=== PATIENT | male | born 1960 | race African-American/Black ===

== ENCOUNTER 2025-03-14 15:07 | Inpatient (IN) | payer OTHER ==
[2025-03-14] MEDS ORDERED: NALOXONE (NARCAN) HCL 4 MG/0.1 ML SPRAY NS PRN (20:27)
[2025-03-14] MEDS ORDERED: MAGNESIUM HYDROX 2400MG/30ML ORAL SUSPENSION 30 ML CUP PO PRN (20:27)
[2025-03-14] MEDS ORDERED: BENZONATATE 200 MG CAPSULE PO PRN (20:27)
[2025-03-14] MEDS ORDERED: LOPERAMIDE HCL 2 MG CAPSULE PO PRN (20:27)
[2025-03-14] MEDS ORDERED: BENZOCAINE/MENTHOL (CHLORASEPTIC ) LOZENGE MM PRN (20:27)
[2025-03-14] MEDS ORDERED: IBUPROFEN 400 MG TABLET (FP) PO PRN (20:27)
[2025-03-14] MEDS ORDERED: MAG HYDROX/AL HYDROX/SIMETH 30 ML UNIT-DOSE CUP PO PRN (20:27)
[2025-03-14] MEDS ORDERED: guaiFENesin 600 MG TABLET.ER (FP) PO PRN (20:27)
[2025-03-14] MEDS ORDERED: POLYETHYLENE GLYCOL (HEALTHYLAX) 3350 17 GM PACKET PO PRN (20:27)
[2025-03-14] MEDS ORDERED: NALOXONE HCL 0.4 MG/ML VIAL IVPUSH PRN (20:27)
[2025-03-14] MEDS: THIAMINE 100 MG TABLET PO SCH (22:38)
[2025-03-14] MEDS: MELATONIN 5 MG TABLETS PO SCH (22:38)
[2025-03-14] MEDS: METHOCARBAMOL 500 MG TABLET PO PRN (22:40)
[2025-03-14] MEDS: hydrOXYzine PAMOATE 25 MG CAPSULE (FP) PO PRN (22:40)
[2025-03-15] MEDS: IBUPROFEN 600 MG TABLET (FP) PO PRN (09:44)
[2025-03-15] MEDS: PRENATAL VITAMINS W/ FOLIC ACID TABLET (FP) PO SCH (09:44)
[2025-03-15] MEDS ORDERED: INSULIN (NOVOLOG) ASPART 100 UNITS/ML 10ML VIAL SQ ONE (11:39)
[2025-03-15] MEDS: ACETAMINOPHEN 325 MG TABLET (FP) PO PRN (19:49)
[2025-03-15] MEDS: levETIRAcetam 500 MG TABLET (FP) PO SCH (21:17)
[2025-03-15] MEDS: AMITRIPTYLINE HCL 75 MG TABLET PO SCH (23:09)
[2025-03-16] MEDS: BICTEGRAV/EMTRICIT/TENOFOV (BIKTARVY) 50-200-25 MG TABLET PO SCH (14:29)
[2025-03-16] MEDS: valACYclovir HCL 500 MG TABLET (FP) PO SCH (14:29)
[2025-03-17] MEDS ORDERED: NICOTINE POLACRILEX 2 MG GUM BUC PRN (07:51)
[2025-03-17] MEDS: NICOTINE 14 MG/24 HOURS TOPICAL PATCH TD SCH (09:37)
[2025-03-18 06:33] VITALS: BP 134/75; PULSE 96; RESP 16; TEMP 96.2
[2025-03-19] MEDS ORDERED: BICTEGRAV/EMTRICIT/TENOFOV (BIKTARVY) 50-200-25 MG TABLET PO SCH (07:00)
[2025-03-20] MEDS ORDERED: AMITRIPTYLINE HCL 25 MG TABLET PO SCH (22:00)
== END 2025-03-18 11:20 | disposition left against medical advice (07) | DRG 770 ==
LOC: YASAS 15:07 → Y3NR 15:08 → Y5N 03-15 15:48
PROVIDERS: ADMIT Psychiatry & Neurology Pain Medicine; ATTEND Psychiatry & Neurology Pain Medicine
PROC: HZ42ZZZ Group Counseling for Substance Abuse Treatment, Cognitive-Behavioral (ICD-10-PCS; principal; 2025-03-14)
DX: F10.20 Alcohol dependence, uncomplicated (principal); F14.20 Cocaine dependence, uncomplicated; F17.290 Nicotine dependence, other tobacco product, uncomplicated; F32.A Depression, unspecified; F41.9 Anxiety disorder, unspecified; F60.2 Antisocial personality disorder; Z21 Asymptomatic human immunodeficiency virus [HIV] infection status; I10 Essential (primary) hypertension; G40.A11 Absence epileptic syndrome, intractable, with status epilepticus; E11.9 Type 2 diabetes mellitus without complications; Z79.899 Other long term (current) drug therapy
CPT/HCPCS: 83036